=== PATIENT | female | born 1980 | race Two or more races ===

== ENCOUNTER 2024-05-23 15:17 | Inpatient (IN) | payer MEDICAID ==
[~2024-05-23] VITALS: Ht 167.6 cm; Wt 61.4 kg
[2024-05-23 16:09] LABS: BASOPHILS # (AUTO) 0.1 X10'3 (0-0.2); BASOPHILS % (AUTO) 0.7 % (0-1); EOSINOPHILS # (AUTO) 0.2 X10'3 (0-0.9); EOSINOPHILS % (AUTO) 1.6 % (0-6); HEMATOCRIT 43.9 % (35.0-45.0); HEMOGLOBIN 14.6 g/dl (12.0-16.0); LYMPHOCYTES # (AUTO) 2.7 X10'3 (1.1-4.8); LYMPHOCYTES % (AUTO) 27.4 % (21-51); MEAN CORPUSCULAR HEMOGLOBIN 30.3 PG (27.0-31.0); MEAN CORPUSCULAR HGB CONC 33.4 g/dL (33.0-36.5); MEAN CORPUSCULAR VOLUME 90.7 FL (78-98); MONOCYTES # (AUTO) 1.2 X10'3 (0-0.9); MONOCYTES % (AUTO) 11.5 % (2-12); NEUTROPHILS # (AUTO) 5.9 X10'3 (1.8-7.7); NEUTROPHILS % (AUTO) 58.8 % (42-75); PLATELET COUNT 235 X10'3 (140-440); RED BLOOD COUNT 4.84 X10'6 (4.20-5.60); RED CELL DISTRIBUTION WIDTH 13.8 % (11.5-14.5)
[2024-05-23 16:19] LABS: ALANINE AMINOTRANSFERASE 16 U/L (12-78); ALBUMIN 3.1 G/DL (3.4-5.0); ALBUMIN/GLOBULIN RATIO 0.8 (1.1-1.5); ALKALINE PHOSPHATASE 77 IU/L (46-116); ANION GAP 7 (8-16); ASPARTATE AMINO TRANSFERASE 13 U/L (10-37); BILIRUBIN,TOTAL 0.4 MG/DL (0.1-1.0); BLOOD UREA NITROGEN 12 MG/DL (7-18); BUN/CREATININE RATIO 18.2 (10.0-20.0); CALCIUM 8.7 MG/DL (8.5-10.1); CHLORIDE 109 MMOL/L (99-107); CREATININE 0.66 MG/DL (0.40-0.90); GLUCOSE 101 MG/DL (70-104); SODIUM 142 MMOL/L (135-145); TOTAL CARBON DIOXIDE 26.3 MMOL/L (24-32); TOTAL PROTEIN 6.8 G/DL (6.4-8.2); eCRCL 100 ML/MIN; eGFR > 90 ML/MIN
[2024-05-23 16:30] LABS: PRO BRAIN NATRIURETIC PEPTIDE 182 PG/ML (0-125)
[2024-05-23] MEDS: metoprolol tartrate 50mg tablet PO ONE (17:41)
[2024-05-23 18:14] LABS: D-DIMER 1.06 MG/L FEU (0-0.50)
[2024-05-23 18:16] LABS: BILIRUBIN,URINE NEGATIVE (Neg); CLARITY,URINE CLEAR (Clear); COLOR,URINE YELLOW (Yellow); GLUCOSE, URINE NEGATIVE (Neg); KETONES,URINE NEGATIVE (Neg); LEUKOCYTE ESTERASE ,URINE NEGATIVE (Neg); NITRITES, URINE NEGATIVE (Neg); OCCULT BLOOD,URINE NEGATIVE (Neg); PH,URINE 7.5 (4.8-8.0); PROTEIN,URINE NEGATIVE (Neg)
[2024-05-23 18:21] LABS: THYROID STIMULATING HORMONE 1.49 ulU/ml (0.34-4.50)
[2024-05-23 18:22] LABS: UA COLLECTION TYPE CLN CATCH MIDSTREAM
[2024-05-23 18:24] LABS: URINE AMPHETAMINE SCREEN NEGATIVE (Neg); URINE BARBITUATE SCREEN NEGATIVE (Neg); URINE BENZODIAZEPINES SCREEN NEGATIVE (Neg); URINE CANNABINOID SCREEN NEGATIVE (Neg); URINE COCAINE SCREEN NEGATIVE (Neg); URINE METHADONE SCREEN NEGATIVE (Neg); URINE OPIATE SCREEN NEGATIVE (Neg); URINE PHENCYCLIDINE SCREEN NEGATIVE (Neg)
[2024-05-23 19:02] LABS: BASOPHILS % (AUTO) 0.4 % (0-1); EOSINOPHILS # (AUTO) 0.2 X10'3 (0-0.9); EOSINOPHILS % (AUTO) 1.5 % (0-6); HEMATOCRIT 39.6 % (35.0-45.0); HEMOGLOBIN 13.4 g/dl (12.0-16.0); LYMPHOCYTES # (AUTO) 2.2 X10'3 (1.1-4.8); LYMPHOCYTES % (AUTO) 22.2 % (21-51); MEAN CORPUSCULAR HEMOGLOBIN 30.5 PG (27.0-31.0); MEAN CORPUSCULAR HGB CONC 33.8 g/dL (33.0-36.5); MEAN CORPUSCULAR VOLUME 90.1 FL (78-98); MEAN PLATELET VOLUME 7.8 FL (7.4-10.4); MONOCYTES # (AUTO) 1.1 X10'3 (0-0.9); MONOCYTES % (AUTO) 11.1 % (2-12); NEUTROPHILS # (AUTO) 6.5 X10'3 (1.8-7.7); NEUTROPHILS % (AUTO) 64.8 % (42-75); PLATELET COUNT 237 X10'3 (140-440); RED CELL DISTRIBUTION WIDTH 13.7 % (11.5-14.5)
[2024-05-23] MEDS ORDERED: potassium Cl 20 mEq SR tablet PO PRN ×2 (20:00)
[2024-05-23] MEDS ORDERED: magnesium sulf-water 4G/100mL 100 ML IV PRN (20:00)
[2024-05-23] MEDS ORDERED: magnesium Cl slow-release 64mg tablet PO PRN (20:00)
[2024-05-23] MEDS ORDERED: magnesium sulf-water 2g/50mL 50 ML IV PRN (20:00)
[2024-05-23] MEDS ORDERED: mag hydrox/Alum hydrox/simeth 30ml oral suspension PO PRN (20:00)
[2024-05-23] MEDS: normal saline 1000ml 1,000 ML IV SCH (20:00)
[2024-05-23] MEDS ORDERED: potassium Cl 40MEQ/1/2NS 520ml 520 ML IV PRN (20:00)
[2024-05-23] MEDS: K and/or MAG REPLACEMENT MC SCH (20:00)
[2024-05-23] MEDS ORDERED: enoxaparin 40mg/0.4ml syringe SUBCUT SCH (20:15)
[2024-05-23] MEDS ORDERED: aminophylline 250mg/10ml inj. IV PRN (20:25)
[2024-05-23] MEDS ORDERED: regadenoson 0.4mg/5ml syringe IV PRN (20:25)
[2024-05-23] MEDS ORDERED: nitroGLYCERIN 0.4mg SUBLingual tab SL PRN (20:25)
[2024-05-23] MEDS ORDERED: metoprolol tartrate 1mg/ml inj IV PRN (20:25)
[2024-05-23 20:48] LABS: PHOSPHORUS 3.1 MG/DL (2.3-4.5)
[2024-05-23 20:50] LABS: HEMOGLOBIN A1C 5.5 % (4.5-6.2)
[2024-05-23] MEDS ORDERED: enoxaparin 60mg/0.6ml syringe SUBCUT SCH (22:38)
[2024-05-23] MEDS: aspirin 325mg tablet PO ONE (22:43)
[2024-05-23] MEDS: enoxaparin 60mg/0.6ml syringe SUBCUT SCH (22:52)
[2024-05-23 23:30] VITALS: BP 128/82; PULSE 71; RESP 15; TEMP 97.7; O2SAT 100
[2024-05-24] MEDS ORDERED: OXYC5TAB2 PO (00:41)
[2024-05-24] MEDS ORDERED: ACET-75 PO (00:41)
[2024-05-24] MEDS ORDERED: BACI28.42 TOP (00:41)
[2024-05-24] MEDS ORDERED: HYDR-3686 PO (00:45)
[2024-05-24] MEDS ORDERED: SUMA25TA9 (00:45)
[2024-05-24 02:00] VITALS: BP 124/76; PULSE 71; RESP 15; TEMP 98.7; O2SAT 100
[2024-05-24 06:00] VITALS: BP 112/63; PULSE 70; RESP 16; TEMP 97.9; O2SAT 99
[2024-05-24] MEDS ORDERED: enoxaparin 40mg/0.4ml syringe SUBCUT SCH (08:00)
[2024-05-24] MEDS: hydrOXYzine 25 MG tablet PO SCH (08:00)
[2024-05-24 08:43] LABS: BASOPHILS % (AUTO) 0.5 % (0-1); EOSINOPHILS # (AUTO) 0.2 X10'3 (0-0.9); EOSINOPHILS % (AUTO) 2.5 % (0-6); HEMATOCRIT 39.7 % (35.0-45.0); HEMOGLOBIN 13.3 g/dl (12.0-16.0); LYMPHOCYTES # (AUTO) 2.4 X10'3 (1.1-4.8); LYMPHOCYTES % (AUTO) 28.2 % (21-51); MEAN CORPUSCULAR HEMOGLOBIN 30.5 PG (27.0-31.0); MEAN CORPUSCULAR HGB CONC 33.6 g/dL (33.0-36.5); MEAN CORPUSCULAR VOLUME 90.9 FL (78-98); MEAN PLATELET VOLUME 7.8 FL (7.4-10.4); MONOCYTES # (AUTO) 0.8 X10'3 (0-0.9); MONOCYTES % (AUTO) 9.8 % (2-12); NEUTROPHILS # (AUTO) 4.9 X10'3 (1.8-7.7); PLATELET COUNT 222 X10'3 (140-440); RED BLOOD COUNT 4.37 X10'6 (4.20-5.60); RED CELL DISTRIBUTION WIDTH 13.8 % (11.5-14.5); WHITE BLOOD COUNT 8.3 X10'3 (4.5-11.0)
[2024-05-24 08:59] LABS: ALBUMIN 2.7 G/DL (3.4-5.0); ANION GAP 9 (8-16); BLOOD UREA NITROGEN 8 MG/DL (7-18); BUN/CREATININE RATIO 15.7 (10.0-20.0); CALCIUM 8.3 MG/DL (8.5-10.1); CHLORIDE 108 MMOL/L (99-107); CHOL/HDL RATIO 3.7 (0.00-4.99); CHOLESTEROL 207 MG/DL (0-200); CREATININE 0.51 MG/DL (0.40-0.90); GLUCOSE 92 MG/DL (70-104); HDL CHOLESTEROL 56 MG/DL (35-60); LDL CHOLESTEROL 117 MG/DL (50-100); SODIUM 139 MMOL/L (135-145); TOTAL CARBON DIOXIDE 22.2 MMOL/L (24-32); TRIGLYCERIDES 179 MG/DL (20-135); eCRCL 129 ML/MIN; eGFR > 90 ML/MIN
[2024-05-24] MEDS: atorvastatin 20mg tablet PO SCH (10:08)
[2024-05-24] MEDS: metoprolol succinate 25mg (24-HOUR) SR. Tablet PO SCH (10:08)
[2024-05-24] MEDS: aspirin 81mg tab.chew PO SCH (10:08)
[2024-05-24] MEDS: acetaminophen 325mg tablet PO PRN (10:19)
[2024-05-24 11:00] VITALS: BP 117/74; PULSE 82; RESP 16; TEMP 97.8; O2SAT 97
[2024-05-24 15:50] VITALS: BP 126/78; PULSE 73; RESP 16; TEMP 97.9; O2SAT 98
[2024-05-24 18:00] VITALS: BP 129/81; PULSE 77; RESP 19; TEMP 98.3; O2SAT 99
[2024-05-24] MEDS: Melatonin 3mg tablet PO ONE (20:27)
[2024-05-24 22:00] VITALS: BP 127/79; PULSE 61; RESP 15; TEMP 97.4; O2SAT 99
[2024-05-25] VITALS (14 sets, daily range): BP systolic 111–138; BP diastolic 63–87; PULSE 56–108; RESP 15–22; TEMP 97.4–98.4; O2SAT 96–99
[2024-05-25] MEDS: oxyCODONE IR 5mg (immed. release) tablet PO PRN (00:50)
[2024-05-25] MEDS: ondansetron/PF 4mg/2ml inj IV PRN (03:43)
[2024-05-25 08:34] LABS: BASOPHILS % (AUTO) 0.4 % (0-1); EOSINOPHILS # (AUTO) 0.2 X10'3 (0-0.9); EOSINOPHILS % (AUTO) 3.3 % (0-6); HEMATOCRIT 40.6 % (35.0-45.0); HEMOGLOBIN 13.4 g/dl (12.0-16.0); LYMPHOCYTES # (AUTO) 2.3 X10'3 (1.1-4.8); LYMPHOCYTES % (AUTO) 31.2 % (21-51); MEAN CORPUSCULAR HEMOGLOBIN 29.6 PG (27.0-31.0); MEAN CORPUSCULAR HGB CONC 33.1 g/dL (33.0-36.5); MEAN CORPUSCULAR VOLUME 89.6 FL (78-98); MEAN PLATELET VOLUME 7.8 FL (7.4-10.4); MONOCYTES # (AUTO) 0.7 X10'3 (0-0.9); MONOCYTES % (AUTO) 9.7 % (2-12); NEUTROPHILS # (AUTO) 4.2 X10'3 (1.8-7.7); NEUTROPHILS % (AUTO) 55.4 % (42-75); PLATELET COUNT 226 X10'3 (140-440); RED BLOOD COUNT 4.53 X10'6 (4.20-5.60); RED CELL DISTRIBUTION WIDTH 13.8 % (11.5-14.5); WHITE BLOOD COUNT 7.5 X10'3 (4.5-11.0)
[2024-05-25 08:42] LABS: ALBUMIN 2.6 G/DL (3.4-5.0); ANION GAP 7 (8-16); BLOOD UREA NITROGEN 11 MG/DL (7-18); BUN/CREATININE RATIO 18.3 (10.0-20.0); CALCIUM 8.7 MG/DL (8.5-10.1); CHLORIDE 105 MMOL/L (99-107); GLUCOSE 89 MG/DL (70-104); POTASSIUM 4.3 MMOL/L (3.5-5.1); SODIUM 139 MMOL/L (135-145); TOTAL CARBON DIOXIDE 26.6 MMOL/L (24-32); eCRCL 110 ML/MIN; eGFR > 90 ML/MIN
[2024-05-25] MEDS ORDERED: metoprolol tartrate 1mg/ml inj IV PRN (11:05)
[2024-05-25] MEDS ORDERED: aminophylline 250mg/10ml inj. IV PRN (11:05)
[2024-05-25] MEDS ORDERED: nitroGLYCERIN 0.4mg SUBLingual tab SL PRN (11:05)
[2024-05-25] MEDS: regadenoson 0.4mg/5ml syringe IV PRN (13:27)
[2024-05-26] VITALS (7 sets, daily range): BP systolic 105–119; BP diastolic 63–71; PULSE 58–81; RESP 14–19; TEMP 97.2–98.7; O2SAT 96–100
[2024-05-26 07:21] LABS: ALBUMIN 2.7 G/DL (3.4-5.0); ANION GAP 6 (8-16); BLOOD UREA NITROGEN 13 MG/DL (7-18); CALCIUM 8.8 MG/DL (8.5-10.1); CHLORIDE 103 MMOL/L (99-107); CREATININE 0.81 MG/DL (0.40-0.90); GLUCOSE 94 MG/DL (70-104); POTASSIUM 4.1 MMOL/L (3.5-5.1); SODIUM 136 MMOL/L (135-145); TOTAL CARBON DIOXIDE 27.5 MMOL/L (24-32); eCRCL 81 ML/MIN; eGFR 76 ML/MIN
[2024-05-26 07:24] LABS: EOSINOPHILS # (AUTO) 0.3 X10'3 (0-0.9); MEAN PLATELET VOLUME 7.7 FL (7.4-10.4); MONOCYTES % (AUTO) 11.1 % (2-12)
[2024-05-26 07:26] LABS: BASOPHILS % (AUTO) 0.5 % (0-1); EOSINOPHILS % (AUTO) 3.6 % (0-6); HEMATOCRIT 42.6 % (35.0-45.0); LYMPHOCYTES % (AUTO) 22.9 % (21-51); MEAN CORPUSCULAR HEMOGLOBIN 29.7 PG (27.0-31.0); NEUTROPHILS # (AUTO) 5.3 X10'3 (1.8-7.7); NEUTROPHILS % (AUTO) 61.9 % (42-75); PLATELET COUNT 232 X10'3 (140-440); RED BLOOD COUNT 4.73 X10'6 (4.20-5.60); RED CELL DISTRIBUTION WIDTH 13.7 % (11.5-14.5); WHITE BLOOD COUNT 8.6 X10'3 (4.5-11.0)
[2024-05-26] MEDS: docusate sod 100mg capsule PO SCH (19:55)
[2024-05-27] VITALS: BP 115/78; PULSE 80; RESP 14; TEMP 98.6; O2SAT 97
[2024-05-27 07:00] VITALS: BP 112/67; PULSE 62; RESP 14; TEMP 98.8; O2SAT 97
[2024-05-27 07:50] LABS: BASOPHILS % (AUTO) 0.5 % (0-1); EOSINOPHILS # (AUTO) 0.3 X10'3 (0-0.9); EOSINOPHILS % (AUTO) 3.6 % (0-6); HEMATOCRIT 42.2 % (35.0-45.0); LYMPHOCYTES # (AUTO) 1.9 X10'3 (1.1-4.8); MEAN CORPUSCULAR HEMOGLOBIN 29.7 PG (27.0-31.0); MEAN CORPUSCULAR HGB CONC 33.2 g/dL (33.0-36.5); MEAN CORPUSCULAR VOLUME 89.5 FL (78-98); MEAN PLATELET VOLUME 7.8 FL (7.4-10.4); MONOCYTES % (AUTO) 12.5 % (2-12); NEUTROPHILS # (AUTO) 4.9 X10'3 (1.8-7.7); NEUTROPHILS % (AUTO) 60.4 % (42-75); PLATELET COUNT 243 X10'3 (140-440); RED BLOOD COUNT 4.71 X10'6 (4.20-5.60); RED CELL DISTRIBUTION WIDTH 13.6 % (11.5-14.5); WHITE BLOOD COUNT 8.1 X10'3 (4.5-11.0)
[2024-05-27 08:00] VITALS: RESP 18; O2SAT 100
[2024-05-27 08:04] LABS: ALBUMIN 2.7 G/DL (3.4-5.0); ANION GAP 6 (8-16); BLOOD UREA NITROGEN 13 MG/DL (7-18); BUN/CREATININE RATIO 17.3 (10.0-20.0); CHLORIDE 102 MMOL/L (99-107); CREATININE 0.75 MG/DL (0.40-0.90); GLUCOSE 92 MG/DL (70-104); SODIUM 136 MMOL/L (135-145); TOTAL CARBON DIOXIDE 28.3 MMOL/L (24-32); eCRCL 88 ML/MIN; eGFR 83 ML/MIN
[2024-05-27] MEDS: magnesium hydroxide 30ml (MOM) UD suspension PO PRN (08:10)
[2024-05-27 11:00] VITALS: BP 118/69; PULSE 73; RESP 16; TEMP 97.8; O2SAT 98
[2024-05-27 13:34] VITALS: RESP 14
== END 2024-05-27 14:30 | DRG 201 ==
LOC: ER 15:18 → ED HOLD 20:10 → PCU 3S 23:20
PROVIDERS: ADMIT Internal Medicine Critical Care Medicine; ATTEND Nurse Practitioner Family
PROC: 4A02XM4 Measurement of Cardiac Total Activity, External Approach (ICD-10-PCS; principal; 2024-05-25)
PROC: 3E033HZ Introduction of Radioactive Substance into Peripheral Vein, Percutaneous Approach (ICD-10-PCS; 2024-05-25)
DX: I47.10 Supraventricular tachycardia, unspecified (principal); I21.A1 Myocardial infarction type 2; Q85.01 Neurofibromatosis, type 1; Z79.899 Other long term (current) drug therapy
CPT/HCPCS: 36415; 71045; 78452; 80048; 80053; 80061; 80305; 81003; 83036; 83735; 83880; 84100; 84443; 84484; 85025; 85379; 87081; 93005; 93017; 93306; 97116; 97164; 99285; A9500; C1758; G0378; J1650; J2405; J2785; J7030; Q0177